=== PATIENT | female | born 1950 | race African-American/Black ===

== ENCOUNTER → 2016-07-26 | Outpatient (CLI) | payer MEDICARE, OTHER ==
[~2016-07-26] VITALS: Ht 157.5 cm; Wt 106.0 kg
[~2016-07-26] MED LIST: ALBU8.5H IH; ATOR20TA86 PO; CETI-260 PO; DULO60CA44 PO; FURO40I IM; HYDR200T4 PO; MOME13HF IH; MOME17N NASAL; MONT10TA21 PO; OMEP20 PO; PREG75 PO; TRAM50TA4 PO; VALS160T2 PO; VITAD1000 PO
[2016-07-26 12:41] VITALS: BP 124/74
== END | disposition home or self-care (01) ==
LOC: SRCNTR 12:37
PROVIDERS: ATTEND Internal Medicine Critical Care Medicine
DX: J44.9 Chronic obstructive pulmonary disease, unspecified (principal); I10 Essential (primary) hypertension; J06.9 Acute upper respiratory infection, unspecified; E66.01 Morbid (severe) obesity due to excess calories; J98.4 Other disorders of lung; J98.6 Disorders of diaphragm; M06.9 Rheumatoid arthritis, unspecified; R09.02 Hypoxemia
CPT/HCPCS: G0463

== ENCOUNTER → 2016-08-26 | Outpatient (CLI) | payer MEDICARE, OTHER ==
[~2016-08-26] VITALS: Ht 157.5 cm; Wt 103.5 kg
[2016-08-26 11:47] VITALS: BP 129/71
== END | disposition home or self-care (01) ==
LOC: SRCNTR 11:20
PROVIDERS: ATTEND Internal Medicine Critical Care Medicine
DX: I10 Essential (primary) hypertension (principal); J44.1 Chronic obstructive pulmonary disease with (acute) exacerbation; J06.9 Acute upper respiratory infection, unspecified; E66.01 Morbid (severe) obesity due to excess calories; J98.4 Other disorders of lung; J98.6 Disorders of diaphragm; M06.9 Rheumatoid arthritis, unspecified; R09.02 Hypoxemia; G47.33 Obstructive sleep apnea (adult) (pediatric)
CPT/HCPCS: G0463

== ENCOUNTER → 2016-12-23 | Outpatient (CLI) | payer MEDICARE, OTHER ==
[~2016-12-23] VITALS: Ht 157.5 cm; Wt 104.5 kg
[~2016-12-23] MED LIST changes: -TRAM50TA4 PO
[2016-12-23 11:52] VITALS: BP 147/77
== END | disposition home or self-care (01) ==
LOC: SRCNTR 11:24
PROVIDERS: ATTEND Internal Medicine Critical Care Medicine
DX: I10 Essential (primary) hypertension (principal); J06.9 Acute upper respiratory infection, unspecified; E66.01 Morbid (severe) obesity due to excess calories; J98.4 Other disorders of lung; J98.6 Disorders of diaphragm; M06.9 Rheumatoid arthritis, unspecified; R09.02 Hypoxemia; J44.1 Chronic obstructive pulmonary disease with (acute) exacerbation; G47.33 Obstructive sleep apnea (adult) (pediatric); I82.401 Acute embolism and thrombosis of unspecified deep veins of right lower extremity; Z87.891 Personal history of nicotine dependence; Z79.01 Long term (current) use of anticoagulants
CPT/HCPCS: G0463

== ENCOUNTER → 2017-03-16 | Outpatient (CLI) | payer MEDICARE, OTHER ==
[~2017-03-16] VITALS: Ht 157.5 cm; Wt 104.0 kg
[~2017-03-16] MED LIST changes: -ALBU8.5H IH; +ALBU8.5H8 IH; -CETI-260 PO; +CETI-290 PO; +FURO40 PO; +SPIR25 PO; +TOFA5TAB PO
[2017-03-16 11:44] VITALS: BP 132/64
== END | disposition home or self-care (01) ==
LOC: SRCNTR 11:32
PROVIDERS: ATTEND Internal Medicine Critical Care Medicine
DX: G47.33 Obstructive sleep apnea (adult) (pediatric) (principal); J06.9 Acute upper respiratory infection, unspecified; J96.11 Chronic respiratory failure with hypoxia; J44.1 Chronic obstructive pulmonary disease with (acute) exacerbation; I10 Essential (primary) hypertension; E66.01 Morbid (severe) obesity due to excess calories; M06.9 Rheumatoid arthritis, unspecified; J98.6 Disorders of diaphragm; J98.4 Other disorders of lung; Z87.891 Personal history of nicotine dependence
CPT/HCPCS: G0463

== ENCOUNTER → 2017-05-16 | Outpatient (CLI) | payer MEDICARE, OTHER ==
[~2017-05-16] VITALS: Ht 157.5 cm; Wt 103.0 kg
[~2017-05-16] MED LIST changes: -DULO60CA44 PO; -FURO40I IM
[2017-05-16 13:29] VITALS: BP 122/71
== END | disposition home or self-care (01) ==
LOC: SRCNTR 13:15
PROVIDERS: ATTEND Internal Medicine Critical Care Medicine
DX: J44.1 Chronic obstructive pulmonary disease with (acute) exacerbation (principal); I10 Essential (primary) hypertension; J06.9 Acute upper respiratory infection, unspecified; E66.01 Morbid (severe) obesity due to excess calories; J98.4 Other disorders of lung; M06.9 Rheumatoid arthritis, unspecified; J96.11 Chronic respiratory failure with hypoxia
CPT/HCPCS: G0463

== ENCOUNTER 2017-08-17 08:00 | Day surgery (SDC) | payer MEDICARE, OTHER ==
[~2017-08-17] VITALS: Ht 154.9 cm; Wt 102.7 kg
[~2017-08-17 08:00] MED LIST changes: +ASPI81 PO; +DICLOFENAC SODIUM 0.1% 2.5 ML OPHTHALMIC SOLUTION ONE; +DICLOFENAC SODIUM 0.1% 2.5 ML OPHTHALMIC SOLUTION OS ONE; +FLUT16H NASAL; +HYDR-4061 PO; +MOXIFLOXACIN HCL 0.5% 3 ML OPHTHALMIC SOLUTION ONE; +MOXIFLOXACIN HCL 0.5% 3 ML OPHTHALMIC SOLUTION OS ONE; +PHENYLEPHRINE HCL 2.5% 2 ML OPHTHALMIC SOLUTION ONE; +RINGERS SOLUTION,LACTATED 500 ML IV ONE; +TROPICAMIDE 1% 2 ML OPHTHALMIC SOLUTION ONE
[2017-08-17] MEDS ORDERED: MIDAZOLAM HCL 2 MG/2 ML VIAL IVP ONE (08:01)
[2017-08-17] MEDS ORDERED: FentaNYL CITRATE-PF 100 MCG/2 ML VIAL IVP ONE (08:01)
[2017-08-17] MEDS: PHENYLEPHRINE HCL 2.5% 2 ML OPHTHALMIC SOLUTION OS SCH ×2 (08:37→08:43)
[2017-08-17] MEDS: TROPICAMIDE 1% 2 ML OPHTHALMIC SOLUTION OS SCH ×2 (08:38→08:43)
== END 2017-08-17 11:05 | disposition home or self-care (01) ==
LOC: SURGERY 08:00
PROVIDERS: ATTEND Specialist
DX: H25.012 Cortical age-related cataract, left eye (principal); I10 Essential (primary) hypertension; E78.00 Pure hypercholesterolemia, unspecified; J44.9 Chronic obstructive pulmonary disease, unspecified; F32.9 Major depressive disorder, single episode, unspecified; F41.9 Anxiety disorder, unspecified; M06.9 Rheumatoid arthritis, unspecified; K21.9 Gastro-esophageal reflux disease without esophagitis; E66.3 Overweight; Z72.89 Other problems related to lifestyle; Z98.84 Bariatric surgery status; Z68.41 Body mass index [BMI] 40.0-44.9, adult; Z79.82 Long term (current) use of aspirin; Z79.899 Other long term (current) drug therapy
CPT/HCPCS: 66984; 93005; C1780; J2250; J3010; J7120

== ENCOUNTER → 2017-09-14 | Outpatient (CLI) | payer MEDICARE, OTHER ==
[~2017-09-14] VITALS: Ht 157.5 cm; Wt 103.5 kg
[~2017-09-14] MED LIST changes: -DICLOFENAC SODIUM 0.1% 2.5 ML OPHTHALMIC SOLUTION ONE; -DICLOFENAC SODIUM 0.1% 2.5 ML OPHTHALMIC SOLUTION OS ONE; -MOXIFLOXACIN HCL 0.5% 3 ML OPHTHALMIC SOLUTION ONE; -MOXIFLOXACIN HCL 0.5% 3 ML OPHTHALMIC SOLUTION OS ONE; -PHENYLEPHRINE HCL 2.5% 2 ML OPHTHALMIC SOLUTION ONE; -RINGERS SOLUTION,LACTATED 500 ML IV ONE; -TROPICAMIDE 1% 2 ML OPHTHALMIC SOLUTION ONE
[2017-09-14 13:25] VITALS: BP 173/63
== END | disposition home or self-care (01) ==
LOC: SRCNTR 12:59
PROVIDERS: ATTEND Internal Medicine Critical Care Medicine
DX: J44.1 Chronic obstructive pulmonary disease with (acute) exacerbation (principal); J96.11 Chronic respiratory failure with hypoxia; I10 Essential (primary) hypertension; J06.9 Acute upper respiratory infection, unspecified; E66.01 Morbid (severe) obesity due to excess calories; J98.4 Other disorders of lung; J98.6 Disorders of diaphragm; M06.9 Rheumatoid arthritis, unspecified
CPT/HCPCS: G0463

== ENCOUNTER 2017-09-30 17:15 | Emergency (ER) | payer MEDICARE, OTHER ==
[~2017-09-30] VITALS: Ht 152.4 cm; Wt 100.0 kg
[2017-09-30] MEDS ORDERED: HYDROCODONE/ACETAMINOPHEN 5-325 MG TABLET PO ONE (18:45)
[2017-09-30 19:18] VITALS: BP 147/79
== END 2017-09-30 19:52 | disposition home or self-care (01) ==
LOC: EMS 17:17
DX: M06.2 Rheumatoid bursitis (principal); E78.00 Pure hypercholesterolemia, unspecified; J45.909 Unspecified asthma, uncomplicated; K21.9 Gastro-esophageal reflux disease without esophagitis; Z79.82 Long term (current) use of aspirin
CPT/HCPCS: 99284

== ENCOUNTER → 2017-10-20 | Outpatient (CLI) | payer MEDICARE, OTHER ==
[~2017-10-20] VITALS: Ht 157.5 cm; Wt 104.0 kg
[~2017-10-20] MED LIST changes: -MONT10TA21 PO
[2017-10-20 12:08] VITALS: BP 190/97
== END | disposition home or self-care (01) ==
LOC: SRCNTR 11:31
PROVIDERS: ATTEND Internal Medicine Cardiovascular Disease
DX: I11.0 Hypertensive heart disease with heart failure (principal); J44.9 Chronic obstructive pulmonary disease, unspecified; I82.409 Acute embolism and thrombosis of unspecified deep veins of unspecified lower extremity; M06.9 Rheumatoid arthritis, unspecified; E66.01 Morbid (severe) obesity due to excess calories
CPT/HCPCS: G0463

== ENCOUNTER → 2017-10-20 | Outpatient (CLI) | payer MEDICARE, OTHER ==
[2017-10-20 13:56] LABS: BASOPHILS % (AUTO) 1.8 % (0.0-2.0); HEMATOCRIT 38.2 % (36-46); HEMOGLOBIN 12.6 g/dL (12.0-16.0); LYMPHOCYTES # (AUTO) 1.6 K/uL (1.0-4.8); LYMPHOCYTES % (AUTO) 36.8 % (22.0-44.0); MEAN CORPUSCULAR HEMOGLOBIN 25.4 pg (26.0-34.0); MEAN CORPUSCULAR HGB CONC 33.1 G/dL (31.0-37.0); MEAN CORPUSCULAR VOLUME 77 fL (80-100); MONOCYTES # (AUTO) 0.3 K/uL (0.1-1.0); MONOCYTES % (AUTO) 6.7 % (2.0-9.0); NEUTROPHILS # (AUTO) 2.2 K/uL (1.8-7.7); NEUTROPHILS % (AUTO) 51.7 % (40.0-70.0); PLATELET COUNT (AUTO) 207 K/uL (150-450); RED BLOOD CELL COUNT(AUTO) 4.98 MIL/uL (4.00-5.20); RED CELL DISTRIBUTION WIDTH 16.9 % (11.5-14.5)
[2017-10-20 14:05] LABS: HEMOGLOBIN A1C 6.1 % (4.5-6.2)
[2017-10-20 14:28] LABS: ALANINE AMINOTRANSFERASE 31 U/L (12-78); ALBUMIN 3.5 g/dL (3.4-5.0); ALKALINE PHOSPHATASE 103 U/L (46-116); ANION GAP 9 mmol/L (8-16); ASPARTATE AMINOTRANSFERASE 22 U/L (15-37); BILIRUBIN,TOTAL 0.5 mg/dL (0.1-1.0); CALCIUM, TOTAL 8.9 mg/dL (8.8-10.5); CARBON DIOXIDE 27 mmol/L (22-29); CHLORIDE 107 mmol/L (98-107); CHOL/HDL RATIO 3.5 (3.9-5.7); CHOLESTEROL 165 mg/dL (131-200); GLOMERULAR FILTR. RATE CALC > 60 mL/min (>60); GLUCOSE,RANDOM 78 mg/dL (70-110); HDL CHOLESTEROL 47 mg/dL (40-60); LDL CHOL (CALC.) 106 mg/dL (0-130); POTASSIUM 4.2 mmol/L (3.5-5.1); SODIUM SERUM 143 mmol/L (136-145); THYROID STIMULATING HORMONE 1.12 uIU/mL (0.36-3.74); TOTAL PROTEIN, SERUM 6.9 g/dL (6.4-8.2); TRIGLYCERIDES 58 mg/dL (15-150); UREA NITROGEN, BLOOD 12 mg/dL (7-18)
[2017-10-20 16:08] LABS: APPEARANCE,URINE CLEAR (CLEAR); BILIRUBIN,URINE NEGATIVE (NEGATIVE); GLUCOSE, URINE (UA) NEGATIVE (NEGATIVE); KETONES,URINE NEGATIVE (NEGATIVE); LEUKOCYTE ESTERASE ,URINE NEGATIVE (NEGATIVE); NITRATE,URINE NEGATIVE (NEGATIVE); OCCULT BLOOD,URINE NEGATIVE (NEGATIVE); PROTEIN,URINE TRACE (NEGATIVE); UROBILINOGEN,URINE 0.2 mg/dL (<=1.0)
[2017-10-20 17:05] LABS: RBC,URINE 0-2 /HPF (0-2)
[2017-10-20 17:06] LABS: WBC,URINE 0-2 /HPF (0-5)
[2017-10-20 17:07] LABS: BACTERIA,URINE None Seen /HPF (None Seen); SQUAMOUS EPITHELIAL CELL,UR Moderate /LPF (None Seen)
== END | disposition home or self-care (01) ==
LOC: LABPV 13:22
PROVIDERS: ATTEND Internal Medicine Cardiovascular Disease
DX: I10 Essential (primary) hypertension (principal); Z79.899 Other long term (current) drug therapy
CPT/HCPCS: 83036; 84443

== ENCOUNTER → 2017-11-22 | Outpatient (CLI) | payer MEDICARE, OTHER | END | disposition home or self-care (01) | LOC: RADPV 12:46 | PROVIDERS: ATTEND Internal Medicine Critical Care Medicine | DX: J44.1 Chronic obstructive pulmonary disease with (acute) exacerbation (principal); K21.9 Gastro-esophageal reflux disease without esophagitis; E78.00 Pure hypercholesterolemia, unspecified; M19.90 Unspecified osteoarthritis, unspecified site ==

== ENCOUNTER → 2017-11-23 | Outpatient (CLI) | payer MEDICARE, OTHER ==
[~2017-11-23] VITALS: Ht 157.5 cm; Wt 103.0 kg
[2017-11-23 13:54] VITALS: BP 159/71
== END | disposition home or self-care (01) ==
LOC: SRCNTR 13:27
PROVIDERS: ATTEND Internal Medicine Critical Care Medicine
DX: J44.1 Chronic obstructive pulmonary disease with (acute) exacerbation (principal); J06.9 Acute upper respiratory infection, unspecified; J98.6 Disorders of diaphragm; J96.11 Chronic respiratory failure with hypoxia; E66.01 Morbid (severe) obesity due to excess calories; I10 Essential (primary) hypertension; M06.9 Rheumatoid arthritis, unspecified; J98.4 Other disorders of lung
CPT/HCPCS: G0463

== ENCOUNTER → 2018-01-19 | Outpatient (CLI) | payer MEDICARE, OTHER ==
[2018-01-19 16:22] LABS: BASOPHILS % (AUTO) 0.7 % (0.0-2.0); EOSINOPHILS % (AUTO) 3.8 % (1.0-6.0); HEMATOCRIT 37.9 % (36-46); HEMOGLOBIN 12.4 g/dL (12.0-16.0); LYMPHOCYTES # (AUTO) 1.3 K/uL (1.0-4.8); LYMPHOCYTES % (AUTO) 31.3 % (22.0-44.0); MEAN CORPUSCULAR HEMOGLOBIN 26.1 pg (26.0-34.0); MEAN CORPUSCULAR HGB CONC 32.7 G/dL (31.0-37.0); MEAN CORPUSCULAR VOLUME 80 fL (80-100); MONOCYTES # (AUTO) 0.3 K/uL (0.1-1.0); MONOCYTES % (AUTO) 6.6 % (2.0-9.0); NEUTROPHILS # (AUTO) 2.4 K/uL (1.8-7.7); NEUTROPHILS % (AUTO) 57.6 % (40.0-70.0); PLATELET COUNT (AUTO) 207 K/uL (150-450); RED BLOOD CELL COUNT(AUTO) 4.74 MIL/uL (4.00-5.20); RED CELL DISTRIBUTION WIDTH 16.3 % (11.5-14.5)
[2018-01-19 16:30] LABS: HEMOGLOBIN A1C 5.8 % (4.5-6.2)
[2018-01-19 16:39] LABS: APPEARANCE,URINE CLEAR (CLEAR); BILIRUBIN,URINE NEGATIVE (NEGATIVE); GLUCOSE, URINE (UA) NEGATIVE (NEGATIVE); KETONES,URINE NEGATIVE (NEGATIVE); LEUKOCYTE ESTERASE ,URINE NEGATIVE (NEGATIVE); NITRATE,URINE NEGATIVE (NEGATIVE); OCCULT BLOOD,URINE NEGATIVE (NEGATIVE); PROTEIN,URINE TRACE (NEGATIVE); UROBILINOGEN,URINE 0.2 mg/dL (<=1.0)
[2018-01-19 16:43] LABS: ALANINE AMINOTRANSFERASE 21 U/L (12-78); ALBUMIN 3.5 g/dL (3.4-5.0); ALKALINE PHOSPHATASE 109 U/L (46-116); ANION GAP 6 mmol/L (8-16); ASPARTATE AMINOTRANSFERASE 23 U/L (15-37); BILIRUBIN,TOTAL 0.5 mg/dL (0.1-1.0); CALCIUM, TOTAL 9.4 mg/dL (8.8-10.5); CARBON DIOXIDE 27 mmol/L (22-29); CHLORIDE 107 mmol/L (98-107); CHOL/HDL RATIO 3.9 (3.9-5.7); CHOLESTEROL 184 mg/dL (131-200); GLOMERULAR FILTR. RATE CALC > 60 mL/min (>60); GLUCOSE,RANDOM 93 mg/dL (70-110); HDL CHOLESTEROL 47 mg/dL (40-60); LDL CHOL (CALC.) 128 mg/dL (0-130); POTASSIUM 4.1 mmol/L (3.5-5.1); SODIUM SERUM 140 mmol/L (136-145); THYROID STIMULATING HORMONE 1.33 uIU/mL (0.36-3.74); TOTAL PROTEIN, SERUM 7.2 g/dL (6.4-8.2); TRIGLYCERIDES 45 mg/dL (15-150); UREA NITROGEN, BLOOD 15 mg/dL (7-18)
[2018-01-19 17:02] LABS: BACTERIA,URINE Few /HPF (None Seen); RBC,URINE 0-2 /HPF (0-2); SQUAMOUS EPITHELIAL CELL,UR Moderate /LPF (None Seen); WBC,URINE 0-2 /HPF (0-5)
[2018-01-19 17:03] LABS: MUCUS,URINE Moderate LPF (None Seen)
== END | disposition home or self-care (01) ==
LOC: LABPV 13:17
PROVIDERS: ATTEND Internal Medicine Cardiovascular Disease
DX: I10 Essential (primary) hypertension (principal); I11.9 Hypertensive heart disease without heart failure; E78.00 Pure hypercholesterolemia, unspecified; J44.9 Chronic obstructive pulmonary disease, unspecified; K21.9 Gastro-esophageal reflux disease without esophagitis; Z79.899 Other long term (current) drug therapy
CPT/HCPCS: 83036; 83735; 84443

== ENCOUNTER → 2018-01-20 | Outpatient (CLI) | payer MEDICARE, OTHER ==
[~2018-01-20] MED LIST changes: +ARIP2 PO; +FERR-89 PO; +FOLI1 PO; +IBUP-2070 PO; +MAGOX PO; +SERT100T12 PO
== END | disposition home or self-care (01) ==
LOC: RADPV 14:24
PROVIDERS: ATTEND Internal Medicine Cardiovascular Disease
DX: I34.0 Nonrheumatic mitral (valve) insufficiency (principal); I10 Essential (primary) hypertension
CPT/HCPCS: 93306

== ENCOUNTER → 2018-01-25 | Outpatient (CLI) | payer MEDICARE, OTHER ==
[~2018-01-25] VITALS: Ht 157.5 cm; Wt 102.0 kg
[2018-01-25 11:49] VITALS: BP 170/90
== END | disposition home or self-care (01) ==
LOC: SRCNTR 10:53
PROVIDERS: ATTEND Internal Medicine Cardiovascular Disease
DX: I11.9 Hypertensive heart disease without heart failure (principal); M06.9 Rheumatoid arthritis, unspecified; G89.4 Chronic pain syndrome; J44.9 Chronic obstructive pulmonary disease, unspecified; J84.10 Pulmonary fibrosis, unspecified; E66.01 Morbid (severe) obesity due to excess calories; J30.9 Allergic rhinitis, unspecified
CPT/HCPCS: G0463

== ENCOUNTER → 2018-02-27 | Outpatient (CLI) | payer MEDICARE, OTHER ==
[~2018-02-27] VITALS: Ht 154.9 cm; Wt 101.2 kg
[~2018-02-27] MED LIST changes: -MOME13HF IH; -TOFA5TAB PO; -VALS160T2 PO
[2018-02-27 14:07] VITALS: BP 123/71
== END | disposition home or self-care (01) ==
LOC: SRCNTR 13:53
PROVIDERS: ATTEND Internal Medicine Critical Care Medicine
DX: J44.1 Chronic obstructive pulmonary disease with (acute) exacerbation (principal); I10 Essential (primary) hypertension; J06.9 Acute upper respiratory infection, unspecified; E66.01 Morbid (severe) obesity due to excess calories; M06.9 Rheumatoid arthritis, unspecified; J96.11 Chronic respiratory failure with hypoxia; J98.6 Disorders of diaphragm; J98.4 Other disorders of lung
CPT/HCPCS: G0463

== ENCOUNTER → 2018-06-09 | Outpatient (CLI) | payer MEDICARE, OTHER ==
[~2018-06-09] MED LIST changes: +CETI-170 PO; -CETI-290 PO
[2018-06-09 13:31] VITALS: BP 122/55
== END | disposition home or self-care (01) ==
LOC: SRCNTR 13:08
PROVIDERS: ATTEND Internal Medicine Critical Care Medicine
DX: J44.1 Chronic obstructive pulmonary disease with (acute) exacerbation (principal); J98.6 Disorders of diaphragm; J06.9 Acute upper respiratory infection, unspecified; I10 Essential (primary) hypertension; M06.9 Rheumatoid arthritis, unspecified; E66.01 Morbid (severe) obesity due to excess calories; R09.02 Hypoxemia; Z87.891 Personal history of nicotine dependence
CPT/HCPCS: G0463

== ENCOUNTER → 2019-03-05 | Outpatient (CLI) | payer MEDICARE, OTHER ==
[~2019-03-05] VITALS: Ht 157.5 cm; Wt 103.5 kg
[~2019-03-05] MED LIST changes: -CETI-170 PO; +CETI10TA59 PO; +CHOL100018 PO; -VITAD1000 PO
[2019-03-05 10:19] VITALS: BP 131/86
== END | disposition home or self-care (01) ==
LOC: SRCNTR 10:18
PROVIDERS: ATTEND Internal Medicine Critical Care Medicine
DX: J44.1 Chronic obstructive pulmonary disease with (acute) exacerbation (principal); I10 Essential (primary) hypertension; J06.9 Acute upper respiratory infection, unspecified; E66.01 Morbid (severe) obesity due to excess calories; J98.4 Other disorders of lung; J98.6 Disorders of diaphragm; M06.9 Rheumatoid arthritis, unspecified; R09.02 Hypoxemia; G47.33 Obstructive sleep apnea (adult) (pediatric); E66.9 Obesity, unspecified; Z86.718 Personal history of other venous thrombosis and embolism; Z79.82 Long term (current) use of aspirin; Z79.899 Other long term (current) drug therapy
CPT/HCPCS: G0463

== ENCOUNTER → 2019-05-18 | Outpatient (CLI) | payer MEDICARE, OTHER ==
[~2019-05-18] VITALS: Ht 157.5 cm; Wt 103.5 kg
[~2019-05-18] MED LIST changes: +ASPI-728 PO; -ASPI81 PO
[2019-05-18 11:35] VITALS: BP 156/73
== END | disposition home or self-care (01) ==
LOC: SRCNTR 11:30
PROVIDERS: ATTEND Internal Medicine Critical Care Medicine
DX: J44.9 Chronic obstructive pulmonary disease, unspecified (principal); I10 Essential (primary) hypertension; J06.9 Acute upper respiratory infection, unspecified; E66.01 Morbid (severe) obesity due to excess calories; J98.4 Other disorders of lung; J98.6 Disorders of diaphragm; M06.9 Rheumatoid arthritis, unspecified; R09.02 Hypoxemia
CPT/HCPCS: G0463

== ENCOUNTER → 2019-05-31 | Outpatient (CLI) | payer MEDICARE, OTHER | END | disposition home or self-care (01) | LOC: RADMN 11:14 | PROVIDERS: ATTEND Internal Medicine Critical Care Medicine | DX: J01.90 Acute sinusitis, unspecified (principal) | CPT/HCPCS: 70486 ==